=== PATIENT | male | born 1985 | race Hispanic/Latino ===

== ENCOUNTER 2017-04-26 15:12 | Inpatient (IN) | payer OTHER ==
[~2017-04-26 15:12] MED LIST: AMIDATE IV ONE; QUELICIN ONE; ZEMURON IV ONE
[2017-04-26] MEDS ORDERED: DIPRIVAN 10 MG/ML 1,000 MG/100 ML BOTTLE IV ONE (15:32)
[2017-04-26] MEDS ORDERED: VASELINE LIP THERAPY TP PRN (15:33)
[2017-04-26] MEDS ORDERED: ARTIFICIAL TEARS OPHTH OINT OU PRN (15:33)
--- NOTE | 2017-04-26 15:35 | History and Physical Report ---
History of Present Illness Chief complaint: Unresponsive History of present illness: 31 YO Male found down and unresponsive, with suspected drug overdose. Pt was found down and unresponsive in his private vehicle with several bottles of herbal medications. Pt unable to provide history, and history taken from ED staff and EMS. Pt seen and evaluated in ED and found to be in severe distress and was unable to protect his airway. Pt intubated in ED and admitted to ICU. Past History Past Medical History: No medical history, other (Unable to Obtain) Past Surgical History: No surgical history, Other (Unable to obtain) Social history: single Family history: no significant family history, other (unable to obtain) Medications and Allergies Allergies Allergy/AdvReac Type Severity Reaction Status Date / Time No Known Allergies Allergy Unverified 08/14/16 14:09 Home Medications Medication Instructions Recorded Confirmed Last Taken Type No Known Home Medications [No 04/26/17 04/26/17 Unknown History Reported Home Medications] Review of Systems ROS unobtainable: due to mental status Exam - Constitutional General appearance: Present: severe distress - EENT Eyes: Present: irregular pupil (Pupils pinpoint, sluggish, minimally reactive. ) - Neck Neck: Present: supple, normal ROM - Respiratory Respiratory effort: labored Respiratory: bilateral: diminished - Cardiovascular Heart Sounds: Present: S1 & S2. Absent: rub, click - Extremities Extremities: pulses symmetrical, No edema Peripheral Pulses: within normal limits - Abdominal General gastrointestinal: Present: soft, non-tender, non-distended, normal bowel sounds Male genitourinary: Present: normal - Integumentary Integumentary: Present: clear, warm, dry - Musculoskeletal Musculoskeletal: generalized weakness - Psychiatric Psychiatric: no appropriate mood/affect, no intact judgment & insight, no memory intact - Neurologic Neurologic: no gait normal Assessment and Plan - Patient Problems (1) Acute respiratory failure Current Visit: Yes Status: Acute Qualifiers: Respiratory failure complication: R Plan to address problem: Wean vent as tolerated, daily ABG, SBT in am, pulmonary consulted, supportive care, (2) Metabolic encephalopathy Current Visit: Yes Status: Acute Plan to address problem: IVF, supportive care, (3) Drug overdose Current Visit: Yes Status: Suspected Qualifiers: Encounter type: E Injury intent: I Plan to address problem: UDS, supportive care, (4) DVT prophylaxis Current Visit: Yes Status: Acute
[2017-04-26] MEDS ORDERED: NACL 0.9% 500 ML IV SCH (16:00)
[2017-04-26] MEDS ORDERED: DIPRIVAN 10 MG/ML 1,000 MG/100 ML BOTTLE IV SCH (16:00)
[2017-04-26] MEDS ORDERED: D5/0.45NS 1,000 ML IV SCH (16:00)
[2017-04-26 16:03] LABS: ISTAT Base Excess 1; ISTAT PCO2 40.8 (35-45); ISTAT PH 7.412 (7.35-7.45); ISTAT PO2 431 (80-105); ISTAT SO2 100; ISTAT TCO2 27
[2017-04-26 16:22] LABS: Urine Drugs of Abuse Note Disclamer
--- NOTE | 2017-04-26 16:22 | XRay Report ---
FINAL REPORT PROCEDURE: XR CHEST 1V AP TECHNIQUE: Chest radiograph anteroposterior view. CPT 58804 HISTORY: post-intubation COMPARISON: None FINDINGS: Endotracheal tube is in place, tube tip 6.8 centimeters proximal to the tracheal bifurcation. The trachea is midline. The heart is normal in size. The lungs are clear. There is no evident pneumothorax or pleural fluid. No acute osseous abnormality is seen. IMPRESSION: Endotracheal tube in good position. No radiographically evident acute cardiopulmonary disease.
[2017-04-26 16:46] LABS: Alanine Aminotransferase 19 units/L (7-56); Albumin 4.5 g/dL (3.9-5); Albumin/Globulin Ratio 1.7 %; Alkaline Phosphatase 77 units/L (35-129); Anion Gap 24 mmol/L; Basophils % (Auto) 0.2 % (0.0-1.8); Blood Urea Nitrogen 14 mg/dL (9-20); Calcium 9.6 mg/dL (8.4-10.2); Carbon Dioxide 21 mmol/L (22-30); Chloride 102.1 mmol/L (98-107); Creatine Kinase 125 units/L (55-170); Eosinophils % (Auto) 0.1 % (0.0-4.3); Glucose 118 mg/dL (75-100); Hematocrit 43.3 % (35.5-45.6); Hemoglobin 14.4 gm/dl (11.8-15.2); Mean Corpuscular HGB Conc 33 % (32-34); Mean Corpuscular Hemoglobin 29 pg (28-32); Mean Corpuscular Volume 87 fl (84-94); Platelet Count 358 K/mm3 (140-440); Red Blood Count 4.96 M/mm3 (3.65-5.03); Red Cell Distribution Width 13.9 % (13.2-15.2); Sodium 143 mmol/L (137-145); Total Protein 7.2 g/dL (6.3-8.2); White Blood Count 13.4 K/mm3 (4.5-11.0)
[2017-04-26 16:54] LABS: Bilirubin,Direct < 0.2 mg/dL (0-0.2); Bilirubin,Indirect 0.2 mg/dL
[2017-04-26 16:58] LABS: INR 0.95 (0.87-1.13); Partial Thromboplastin Time 29.6 Sec. (24.2-36.6)
--- NOTE | 2017-04-26 17:07 | Cat Scan Report ---
FINAL REPORT PROCEDURE: CT HEAD/BRAIN WO CON TECHNIQUE: Computerized tomography of the head was performed without contrast material. HISTORY: ams COMPARISON: None FINDINGS: The skull base and calvarium are intact. Partially visualized paranasal sinuses, mastoid air cells and middle ears are clear. Brain volume is age appropriate. There is no intra or extra-axial hemorrhage. There is no CT evident acute infarction. There is no mass effect or shift of midline structures. White matter is intact. IMPRESSION: No CT evident intracranial pathology
[2017-04-26] MEDS ORDERED: ATIVAN 100 MG in NACL 0.9% 50 ML, VIAFLEX EMPTY CONTAINER 0 ML IV SCH (19:00)
[2017-04-26] MEDS ORDERED: HALDOL ONE (19:13)
--- NOTE | 2017-04-26 19:19 | Emergency Department Report ---
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 They state that they found him stuporous and a hot vehicle. According to medics he was driving "20 minutes" prior to their arrival. He had a bottle of herbal pills ("Kratom") in the vehicle which they recovered from the scene. Medics reported that the patient's pulse oximetry was in the mid 90s when they arrived and his glucose about 150. They believe that he was protecting his airway adequately. He was transported on a nonrebreather mask to this facility for evaluation. The patient was found obtunded with miotic pupils. Medics reported no response to Narcan which they administered prior to arrival. He was not responding to a sternal rub. He has snoring respirations. There was certainly a reasonable risk of lost airway and/or aspiration in this setting. Therefore the patient was electively intubated shortly after arrival. No further history is available at this time concerning this patient's presentation. -: unknown Severity scale (0 -10): 0 - Related Data Home Medications Medication Instructions Recorded Confirmed Last Taken No Known Home Medications [No 04/26/17 04/26/17 Unknown Reported Home Medications] Allergies Allergy/AdvReac Type Severity Reaction Status Date / Time No Known Allergies Allergy Unverified 08/14/16 14:09 ED Review of Systems ROS: Stated complaint: UNRESPONSIVE Other details as noted in HPI Comment: Unobtainable due to pts medical conditions ED Past Medical Hx - Past Medical History Previous Medical History?: Yes Hx Hypertension: Yes - Surgical History Past Surgical History?: Yes Additional Surgical History: PYLORIC STENOSIS --BABY - Social History Smoking Status: Unknown if ever smoked Substance Use Type: Other (unknown) - Medications Home Medications: Home Medications Medication Instructions Recorded Confirmed Last Taken Type No Known Home Medications [No 04/26/17 04/26/17 Unknown History Reported Home Medications] ED Physical Exam - General Limitations: Altered Mental Status (obtunded) General appearance: obtunded - Head Head exam: Present: atraumatic - Eye Eye exam: Absent: scleral icterus Pupils: Present: miosis - ENT ENT exam: Present: mucous membranes moist - Neck Neck exam: Present: normal inspection. Absent: tenderness, meningismus - Respiratory Respiratory exam: Present: other (chest increased APD) - Cardiovascular Cardiovascular Exam: Present: regular rate, normal rhythm. Absent: systolic murmur, diastolic murmur, rubs, gallop - GI/Abdominal GI/Abdominal exam: Present: soft, normal bowel sounds. Absent: distended, tenderness, guarding, rebound, rigid - Extremities Exam Extremities exam: Present: normal inspection - Neurological Exam Neurological exam: Present: altered - Skin Skin exam: Present: warm, dry, intact ED Course Vital Signs 04/26/17 04/26/17 04/26/17 15:04 15:16 15:30 Pulse Rate 74 68 67 Respiratory 13 20 Rate Blood Pressure 131/76 127/70 125/81 Blood Pressure [Right] O2 Sat by Pulse 99 Oximetry 04/26/17 04/26/17 04/26/17 15:33 15:40 15:45 Pulse Rate 69 68 70 Respiratory 20 20 Rate Blood Pressure 125/81 130/84 Blood Pressure 111/80 [Right] O2 Sat by Pulse 98 99 100 Oximetry 04/26/17 04/26/17 04/26/17 15:50 16:00 16:01 Pulse Rate 72 71 89 Respiratory 18 18 19 Rate Blood Pressure 146/98 Blood Pressure 125/81 130/84 [Right] O2 Sat by Pulse 99 98 99 Oximetry 04/26/17 04/26/17 04/26/17 16:15 16:45 17:00 Pulse Rate 68 71 Respiratory 19 17 Rate Blood Pressure 121/83 121/77 142/86 Blood Pressure [Right] O2 Sat by Pulse 99 99 97 Oximetry 04/26/17 04/26/17 04/26/17 17:15 17:30 17:45 Pulse Rate 75 72 68 Respiratory 17 17 16 Rate Blood Pressure 139/86 145/92 144/90 Blood Pressure [Right] O2 Sat by Pulse 99 Oximetry 04/26/17 04/26/17 04/26/17 18:00 18:36 18:41 Pulse Rate 71 112 H 114 H Respiratory 18 17 16 Rate Blood Pressure 147/93 199/115 Blood Pressure [Right] O2 Sat by Pulse 97 99 Oximetry - Reevaluation(s) Reevaluation #1: Patient was electively intubated first pass direct laryngoscopy without difficulty. He remained hemodynamically stable in the emergency department. Just prior to transfer to the ICU he became agitated per nursing staff. 50 rocuronium was given and a second trip (lorazepam) was ordered. 04/26/17 19:40 - Intubation Time Out Performed: Yes Sedative: Etomidate Mg Given: 12 Paralytic: Succinylcholine Mg Given: 120 Laryngoscope: Marybel Size: 4 ET Tube Size: 8 Tube Secured Depth (cm): 23 Tube Secured Location: teeth Tube Placement Confirmation: visualized tube passing t, equal breath sounds bilat, no breath sounds over epi, confirmation by capnometr Patient Tolerated Procedure: well Intubation Complications: none ED Medical Decision Making - Lab Data Result diagrams: 04/26/17 16:01 04/26/17 16:01 Laboratory Results - last 24 hr 04/26/17 04/26/17 04/26/17 15:40 15:56 16:01 WBC 13.4 H RBC 4.96 Hgb 14.4 Hct 43.3 MCV 87 MCH 29 MCHC 33 RDW 13.9 Plt Count 358 Lymph % (Auto) 8.5 L [place] % (Auto) 4.8 Eos % (Auto) 0.1 Baso % (Auto) 0.2 Lymph # 1.1 L [place] # 0.6 Eos # 0.0 Baso # 0.0 Seg Neutrophils % 86.4 H Seg Neutrophils # 11.5 H PT INR APTT POC ABG pH 7.412 POC ABG pCO2 40.8 POC ABG pO2 431 H POC ABG HCO3 26.0 POC ABG Total CO2 27 POC ABG O2 Sat 100 POC ABG Base Excess 1 FiO2 100 Sodium Potassium Chloride Carbon Dioxide Anion Gap BUN Creatinine Estimated GFR BUN/Creatinine Ratio Glucose Lactic Acid Calcium Total Bilirubin Direct Bilirubin Indirect Bilirubin AST ALT Alkaline Phosphatase Ammonia Total Creatine Kinase Troponin T Total Protein Albumin Albumin/Globulin Ratio Urine Opiates Screen Presumptive negative Urine Methadone Screen Presumptive negative Ur Barbiturates Screen Presumptive negative Ur Phencyclidine Scrn Presumptive negative Ur Amphetamines Screen Presumptive negative U Benzodiazepines Scrn Presumptive negative Urine Cocaine Screen Presumptive negative U Marijuana (THC) Screen Presumptive negative Drugs of Abuse Note Disclamer 04/26/17 04/26/17 04/26/17 16:01 16:01 16:01 WBC RBC Hgb Hct MCV MCH MCHC RDW Plt Count Lymph % (Auto) [place] % (Auto) Eos % (Auto) Baso % (Auto) Lymph # [place] # Eos # Baso # Seg Neutrophils % Seg Neutrophils # PT 13.2 INR 0.95 APTT 29.6 POC ABG pH POC ABG pCO2 POC ABG pO2 POC ABG HCO3 POC ABG Total CO2 POC ABG O2 Sat POC ABG Base Excess FiO2 Sodium 143 Potassium 4.0 Chloride 102.1 Carbon Dioxide 21 L Anion Gap 24 BUN 14 Creatinine 1.0 Estimated GFR > 60 BUN/Creatinine Ratio 14.00 Glucose 118 H Lactic Acid 1.20 Calcium 9.6 Total Bilirubin 0.40 Direct Bilirubin < 0.2 Indirect Bilirubin 0.2 AST 15 ALT 19 Alkaline Phosphatase 77 Ammonia Total Creatine Kinase 125 Troponin T < 0.010 Total Protein 7.2 Albumin 4.5 Albumin/Globulin Ratio 1.7 Urine Opiates Screen Urine Methadone Screen Ur Barbiturates Screen Ur Phencyclidine Scrn Ur Amphetamines Screen U Benzodiazepines Scrn Urine Cocaine Screen U Marijuana (THC) Screen Drugs of Abuse Note 04/26/17 16:01 WBC RBC Hgb Hct MCV MCH MCHC RDW Plt Count Lymph % (Auto) [place] % (Auto) Eos % (Auto) Baso % (Auto) Lymph # [place] # Eos # Baso # Seg Neutrophils % Seg Neutrophils # PT INR APTT POC ABG pH POC ABG pCO2 POC ABG pO2 POC ABG HCO3 POC ABG Total CO2 POC ABG O2 Sat POC ABG Base Excess FiO2 Sodium Potassium Chloride Carbon Dioxide Anion Gap BUN Creatinine Estimated GFR BUN/Creatinine Ratio Glucose Lactic Acid Calcium Total Bilirubin Direct Bilirubin Indirect Bilirubin AST ALT Alkaline Phosphatase Ammonia 40.0 Total Creatine Kinase Troponin T Total Protein Albumin Albumin/Globulin Ratio Urine Opiates Screen Urine Methadone Screen Ur Barbiturates Screen Ur Phencyclidine Scrn Ur Amphetamines Screen U Benzodiazepines Scrn Urine Cocaine Screen U Marijuana (THC) Screen Drugs of Abuse Note - Radiology Data CXR good tube position no decompensation. Critical Care Time: Yes Critical care time in (mins) excluding proc time.: 45 Critical care attestation.: If time is entered above; I have spent that time in minutes in the direct care of this critically ill patient, excluding procedure time. ED Disposition Clinical Impression: Respiratory failure Qualifiers: Chronicity: acute Respiratory failure complication: unspecified whether with hypoxia or hypercapnia Qualified Code(s): J96.00 - Acute respiratory failure, unspecified whether with hypoxia or hypercapnia Coma Qualifiers: Coma depth: [place] coma 3-8 Coma timing: in the field (EMT or ambulance) Qualified Code(s): R40.2431 - [place] coma scale score 3-8, in the field [EMT or ambulance] Overdose Qualifiers: Encounter type: initial encounter Injury intent: undetermined intent Qualified Code(s): T50.904A - Poisoning by unspecified drugs, medicaments and biological substances, undetermined, initial encounter Disposition: 09 OP ADMIT IP TO THIS HOSP Is pt being admited?: No Does the pt Need Aspirin: No Condition: Stable Time of Disposition: 19:52
[2017-04-26] MEDS ORDERED: HALDOL IM ONE (19:21)
[2017-04-27 05:37] VITALS: BP 151/98
== END 2017-04-27 08:02 | disposition left against medical advice (07) | DRG 917 ==
LOC: ED 15:12 → CC1 15:37
PROVIDERS: ADMIT Internal Medicine; ATTEND Internal Medicine
DX: T50.901A Poisoning by unspecified drugs, medicaments and biological substances, accidental (unintentional), initial encounter (principal); J96.00 Acute respiratory failure, unspecified whether with hypoxia or hypercapnia; G93.41 Metabolic encephalopathy
CPT/HCPCS: 36415; 70450; 71010; 80048; 80074; 80307; 82140; 82550; 82803; 84484; 85025; 85610; 85730; 87205; 94002; J0330; J1630; J2060; J2704